=== PATIENT | female | born 1970 | race Caucasian/White ===

== ENCOUNTER 2019-01-02 06:08 | Emergency (ER) | payer BC, OTHER ==
[2019-01-02 06:19] VITALS: BP 103/63
--- NOTE | 2019-01-02 06:38 | EDM.PDOC ---
<Johnny Presley W - Last Filed: 01/02/19 08:19> ED HPI GENERAL MEDICAL PROBLEM - General Chief Complaint: Abdominal Pain Stated Complaint: STOMACH PAIN NAUSEA Time Seen by Provider: 01/02/19 06:20 - Related Data Allergies Allergy/AdvReac Type Severity Reaction Status Date / Time No Known Allergies Allergy Verified 01/02/19 06:20 Home Meds: Home Meds Citalopram Hydrobromide [Celexa] 20 mg PO DAILY 01/02/19 [History] Multivitamin [Multivitamins] 1 each PO DAILY 01/02/19 [History] Pramipexole Di-HCl [Mirapex] 0.125 mg PO ASDIRECTED 01/02/19 [History] Tamoxifen Citrate 20 mg PO DAILY 01/02/19 [History] Course - Vital Signs Last Recorded V/S: Last Vital Signs Temp 36.3 C 01/02/19 06:12 Pulse 78 01/02/19 06:12 Resp 18 01/02/19 06:12 BP 103/63 01/02/19 06:12 Pulse Ox 96 01/02/19 06:12 - Orders/Labs/Meds Labs: Laboratory Tests 01/02/19 01/02/19 01/02/19 Range/Units 06:20 06:29 06:29 WBC 11.1 H (4.0-10.0) x10^3/uL RBC 3.76 L (4.00-5.50) x10^6/uL Hgb 11.8 L (12.0-16.0) g/dL Hct 34.6 (33.0-47.0) % MCV 92.0 (78.0-93.0) fL MCH 31.4 (26.0-32.0) pg MCHC 34.1 (32.0-36.0) g/dL RDW Coeff of [place] 11.6 (10.0-15.0) % Plt Count 200 (130-400) x10^3/uL Neut % (Auto) 80.7 H (50.0-80.0) % Lymph % (Auto) 12.6 L (25.0-50.0) % [place] % (Auto) 6.1 (2.0-11.0) % Eos % (Auto) 0.3 (0.0-4.0) % Baso % (Auto) 0.3 (0.2-1.2) % Sodium 139 (136-145) mmol/L Potassium 3.9 (3.5-5.1) mmol/L Chloride 105 (98-107) mmol/L Carbon Dioxide 24 (21-32) mmol/L Anion Gap 13.9 (10-20) mmol/L BUN 12 (7-18) mg/dL Creatinine 0.9 (0.55-1.02) mg/dL Est Cr Clr Drug Dosing TNP Estimated GFR (MDRD) > 60 Glucose 119 H (74-106) mg/dL Calcium 8.2 L (8.5-10.1) mg/dL Corrected Calcium 8.68 (8.5-10.1) mg/dL Total Bilirubin 0.4 (0.2-1.0) mg/dL AST 18 (15-37) U/L ALT 27 (14-59) U/L Alkaline Phosphatase 75 (46-116) U/L C-Reactive Protein 3.4 H (<=0.9) mg/dL Total Protein 7.0 (6.4-8.2) g/dL Albumin 3.4 (3.4-5.0) g/dL Globulin 3.6 Albumin/Globulin Ratio 0.94 Amylase 49 (25-115) U/L Urine Color Yellow (YELLOW) Urine Appearance Clear (CLEAR) Urine pH 7.0 (5.0-8.0) Ur Specific [place] 1.015 Urine Protein Negative (NEGATIVE) mg/dL Urine Glucose (UA) Negative (NEGATIVE) mg/dL Urine Ketones Negative (NEGATIVE) mg/dL Urine Occult Blood Small H (NEGATIVE) Urine Nitrite Negative (NEGATIVE) Urine Bilirubin Small H (NEGATIVE) Urine Urobilinogen 1.0 (0.2) EU/dL Ur Leukocyte Esterase Negative (NEGATIVE) Urine RBC 0-5 (NOT SEEN) /HPF Urine WBC 0-5 (NOT SEEN) /HPF Ur Squamous Epith Cells Few H (NEGATIVE) /HPF Urine Bacteria Rare (NEGATIVE) /HPF Hyaline Casts Few H (NEGATIVE) /HPF Urine Mucus Few H (NEGATIVE) /LPF Meds: Medications Discontinued Medications Generic Name Dose Route Start Last Admin Trade Name Freq PRN Reason Stop Dose Admin Lactated Ringer's 1,000 mls @ 999 mls/hr 01/02/19 06:54 01/02/19 07:13 Ringers, Lactated IV 01/02/19 07:54 999 mls/hr ONETIME ONE Administration Piperacillin Sod/Tazobactam 100 mls @ 200 mls/hr 01/02/19 08:02 01/02/19 08: 13 Sod 3.375 gm/ Sodium Chloride IV 01/02/19 08:31 200 mls/hr STAT ONE Administration Iopamidol 100 ml 01/02/19 07:27 01/02/19 07:38 Isovue-300 (61%) IVPUSH 01/02/19 07:28 100 ml ONETIME ONE Administration Ketorolac Tromethamine 15 mg 01/02/19 06:54 01/02/19 07:10 Toradol IVPUSH 01/02/19 06:55 15 mg ONETIME ONE Administration Ondansetron HCl 4 mg 01/02/19 06:54 01/02/19 07:12 Zofran IVPUSH 01/02/19 06:55 4 mg ONETIME ONE Administration Sodium Chloride 10 ml 01/02/19 06:53 Saline Flush FLUSH ASDIRECTED PRN Keep Vein Open - Radiology Interpretation Free Text/Narrative:: CT abd/pelvis with IV contast obtained showing acute appendicitis. Departure - Departure Time of Disposition: 08:19 Disposition: DC/Tfer to Acute Hospital 02 Clinical Impression: Appendicitis - Discharge Information Referrals: Ramona Sanchez PA-C [Primary Care Provider] - Forms: ED Department Discharge, Interfacility Transfer EMTALA - Problem List Review Problem List Initiated/Reviewed/Updated: Yes - Assessment/Plan Plan: Pt. requests transport to [facility]. I contacted their ER and pt. was accepted by Dr. Reyes in ER. He states that the surgeon will be in the hospital later this AM but states that he can accept the patient, as it will likely take some time to get the patient in the system and prepped for surgery so there would be no benefit of transfer to [place]. Pt. was imformed of this and wishes to proceed. Pt. was started on Zosyn 3.375gm IV. He will be transported via [facility] ground ambulance. She is a code 1. Her last intake of food was last evening. She did have a small amount of water this AM. <Jeremias Crenshaw M - Last Filed: 01/03/19 18:13> ED HPI GENERAL MEDICAL PROBLEM - General Source of Information: Reports: Patient History Limitations: Reports: No Limitations - History of Present Illness INITIAL COMMENTS - FREE TEXT/NARRATIVE: Patient reports right lower quadrant pain and nausea since yesterday afternoon. She states it is a sharp cramping that radiates throughout the entire bowel. She does not have her gall bladder and has had a complete hysterectomy. She does still have her appendix. No history of inflammatory bowel disease, crohn's , ulcerative colitis or diverticulitis. She denies fever, chills, chest pain, shortness of breath, vomiting, headache, back ache. Primary provider is Ramona Sanchez. Onset Date: 01/01/19 Duration: Intermittent Location: Reports: Abdomen Quality: Reports: Sharp (sharp cramping) Severity: Moderate Improves with: Reports: None Worsens with: Reports: None Associated Symptoms: Reports: Nausea/Vomiting Right Lower Abdomen Pain Score (Numeric/FACES): 5 Past Medical History Respiratory History: Reports: Other (See Below) Other Respiratory History: CPAP for snoring Other Musculoskeletal History: RLS Psychiatric History: Reports: Anxiety, Depression Oncologic (Cancer) History: Reports: Breast - Past Surgical History Musculoskeletal Surgical History: Reports: Carpal Tunnel Social & Family History - Tobacco Use Smoking Status *Q: Never Smoker ED ROS GENERAL - Review of Systems Review Of Systems: See Below Constitutional: Reports: No Symptoms HEENT: Reports: No Symptoms Respiratory: Reports: No Symptoms Cardiovascular: Reports: No Symptoms Endocrine: Reports: No Symptoms GI/Abdominal: Reports: Abdominal Pain, Nausea : Reports: Pain Musculoskeletal: Reports: No Symptoms Skin: Reports: No Symptoms Neurological: Reports: No Symptoms Psychiatric: Reports: No Symptoms Hematologic/Lymphatic: Reports: No Symptoms Immunologic: Reports: No Symptoms ED EXAM, GI/ABD - Physical Exam Exam: See Below Exam Limited By: No Limitations General Appearance: Alert, WD/WN, No Apparent Distress Eyes: Bilateral: Normal Appearance, EOMI Head: Atraumatic, Normocephalic Neck: Normal Inspection, Supple, Non-Tender, Full Range of Motion Respiratory/Chest: No Respiratory Distress, Lungs Clear, Normal Breath Sounds, No Accessory Muscle Use, Chest Non-Tender Cardiovascular: Normal Peripheral Pulses, Regular Rate, Rhythm, No Edema, No Gallop, No JVD, No Murmur, No Rub GI/Abdominal Exam: Normal Bowel Sounds, No Organomegaly, No Distention, Tender Back Exam: Normal Inspection, Full Range of Motion, NT Extremities: Normal Inspection, Normal Range of Motion, Non-Tender, Normal Capillary Refill, No Pedal Edema Neurological: Alert, Oriented, CN II-XII Intact, Normal Cognition, Normal Gait, Normal Reflexes, No Motor/Sensory Deficits Psychiatric: Normal Affect, Normal Mood Skin Exam: Warm, Dry, Intact, Normal Color, No Rash Lymphatic: No Adenopathy Course - Orders/Labs/Meds Labs: Laboratory Tests 01/02/19 01/02/19 01/02/19 Range/Units 06:20 06:29 06:29 WBC 11.1 H (4.0-10.0) x10^3/uL RBC 3.76 L (4.00-5.50) x10^6/uL Hgb 11.8 L (12.0-16.0) g/dL Hct 34.6 (33.0-47.0) % MCV 92.0 (78.0-93.0) fL MCH 31.4 (26.0-32.0) pg MCHC 34.1 (32.0-36.0) g/dL RDW Coeff of [place] 11.6 (10.0-15.0) % Plt Count 200 (130-400) x10^3/uL Neut % (Auto) 80.7 H (50.0-80.0) % Lymph % (Auto) 12.6 L (25.0-50.0) % [place] % (Auto) 6.1 (2.0-11.0) % Eos % (Auto) 0.3 (0.0-4.0) % Baso % (Auto) 0.3 (0.2-1.2) % Sodium 139 (136-145) mmol/L Potassium 3.9 (3.5-5.1) mmol/L Chloride 105 (98-107) mmol/L Carbon Dioxide 24 (21-32) mmol/L Anion Gap 13.9 (10-20) mmol/L BUN 12 (7-18) mg/dL Creatinine 0.9 (0.55-1.02) mg/dL Est Cr Clr Drug Dosing TNP Estimated GFR (MDRD) > 60 Glucose 119 H (74-106) mg/dL Calcium 8.2 L (8.5-10.1) mg/dL Corrected Calcium 8.68 (8.5-10.1) mg/dL Total Bilirubin 0.4 (0.2-1.0) mg/dL AST 18 (15-37) U/L ALT 27 (14-59) U/L Alkaline Phosphatase 75 (46-116) U/L C-Reactive Protein 3.4 H (<=0.9) mg/dL Total Protein 7.0 (6.4-8.2) g/dL Albumin 3.4 (3.4-5.0) g/dL Globulin 3.6 Albumin/Globulin Ratio 0.94 Amylase 49 (25-115) U/L Urine Color Yellow (YELLOW) Urine Appearance Clear (CLEAR) Urine pH 7.0 (5.0-8.0) Ur Specific [place] 1.015 Urine Protein Negative (NEGATIVE) mg/dL Urine Glucose (UA) Negative (NEGATIVE) mg/dL Urine Ketones Negative (NEGATIVE) mg/dL Urine Occult Blood Small H (NEGATIVE) Urine Nitrite Negative (NEGATIVE) Urine Bilirubin Small H (NEGATIVE) Urine Urobilinogen 1.0 (0.2) EU/dL Ur Leukocyte Esterase Negative (NEGATIVE) Urine RBC 0-5 (NOT SEEN) /HPF Urine WBC 0-5 (NOT SEEN) /HPF Ur Squamous Epith Cells Few H (NEGATIVE) /HPF Urine Bacteria Rare (NEGATIVE) /HPF Hyaline Casts Few H (NEGATIVE) /HPF Urine Mucus Few H (NEGATIVE) /LPF Meds: Medications Discontinued Medications Generic Name Dose Route Start Last Admin Trade Name Freq PRN Reason Stop Dose Admin Lactated Ringer's 1,000 mls @ 999 mls/hr 01/02/19 06:54 01/02/19 07:13 Ringers, Lactated IV 01/02/19 07:54 999 mls/hr ONETIME ONE Administration Piperacillin Sod/Tazobactam 100 mls @ 200 mls/hr 01/02/19 08:02 01/02/19 08: 13 Sod 3.375 gm/ Sodium Chloride IV 01/02/19 08:31 200 mls/hr STAT ONE Administration Iopamidol 100 ml 01/02/19 07:27 01/02/19 07:38 Isovue-300 (61%) IVPUSH 01/02/19 07:28 100 ml ONETIME ONE Administration Ketorolac Tromethamine 15 mg 01/02/19 06:54 01/02/19 07:10 Toradol IVPUSH 01/02/19 06:55 15 mg ONETIME ONE Administration Ondansetron HCl 4 mg 01/02/19 06:54 01/02/19 07:12 Zofran IVPUSH 01/02/19 06:55 4 mg ONETIME ONE Administration Sodium Chloride 10 ml 01/02/19 06:53 Saline Flush FLUSH ASDIRECTED PRN Keep Vein Open
[2019-01-02] MEDS ORDERED: Sodium Chloride 0.9% 10 ML Syringe FLUSH PRN (06:53)
[2019-01-02] MEDS ORDERED: Ketorolac 15 MG/ML SDV IVPUSH ONE (06:54)
[2019-01-02] MEDS ORDERED: Ondansetron 4 MG/2 ML SDV IVPUSH ONE (06:54)
[2019-01-02] MEDS ORDERED: Lactated Ringers 1,000 ML IV ONE (06:54)
[2019-01-02 07:18] LABS: CHLORIDE,CL 105 mmol/L (98-107); SODIUM,NA 139 mmol/L (136-145)
[2019-01-02 07:19] LABS: ANION GAP 13.9 mmol/L (10-20)
[2019-01-02] MEDS ORDERED: Iopamidol 612 MG/ML 100 ML Bottle IVPUSH ONE (07:27)
[2019-01-02] MEDS ORDERED: Piperacillin/Tazobactam 3.375 GM in Sodium Chloride 0.9% 100 ML IV ONE (08:02)
--- NOTE | 2019-01-02 08:06 | CT ---
[id number] CT/CT Abdomen Pelvis W IV EXAM: CT Abdomen Pelvis W IV CLINICAL DATA: ABDOMINAL PAIN COMPARISON: CORRELATION IS MADE WITH THE EXAM OF MARCH 22, 2017. FINDINGS: There is appendicitis with distention of adjacent small bowel. There appear to be surgical changes in the pelvis. The uterus and ovaries are not seen. The liver and spleen, kidneys and adrenals, pancreas and aorta are unremarkable. The gallbladder has been removed. Report called. IMPRESSION: ACUTE APPENDICITIS. Jas Sibley MD 01/02/19 0805 Thank you for allowing us to participate in the care of your patient.
== END 2019-01-02 08:47 | disposition short-term general hospital (02) ==
LOC: VM.ED 06:08
DX: K37 Unspecified appendicitis (principal); F32.9 Major depressive disorder, single episode, unspecified; F41.9 Anxiety disorder, unspecified; Z79.899 Other long term (current) drug therapy
CPT/HCPCS: 36415; 74177; 80053; 81001; 82150; 85025; 86140; 96361; 96365; 96375; 99285; J1885; J2405; J2543; J7050; J7120; Q9967

== ENCOUNTER 2020-02-08 09:01 | Day surgery (SDC) | payer BC ==
[~2020-02-08 09:01] MED LIST: Lactated Ringers 1,000 ML IV SCH
[2020-02-08] MEDS ORDERED: Propofol 200 MG/20 ML SDV ONE ×2 (10:06→10:33)
[2020-02-08] MEDS ORDERED: fentaNYL 100 MCG/2 ML SDV ONE (10:06)
[2020-02-08 11:26] VITALS: BP 100/56; PULSE 62
--- NOTE | 2020-02-08 15:21 | OR ---
DATE OF SURGERY: 02/08/2020 REFERRING PROVIDER: Ramona Sanchez PA-C PRE-OPERATIVE DIAGNOSES: History of colon polyps. The patient had large adenoma removed in 2011 and then repeat colonoscopy in 2014 was normal. There was no family history of colon cancer or significant colon polyps that she is aware of. POST-OPERATIVE DIAGNOSES: 1. 3 mm polyp at 15 cm, removed with cold forceps. 2. Normal-appearing distal ileum. 3. Mild sigmoid diverticulosis. PROCEDURE: Colonoscopy with polypectomy x1 using cold forceps. SURGEON: Mushtaq Rivas M.D. ANESTHESIA: Monitored anesthesia care. BOWEL PREP: Good. Leah is a 49-year-old female who was brought to the endoscopy suite after discussing risks and benefits of the procedure. Informed consent was obtained for conscious sedation and colonoscopy with or without biopsy and/or polypectomy. We also discussed possibility of missed lesions. Pre-procedure exam was unremarkable. IV, oxygen, and monitors were placed. The patient was placed in the left lateral decubitus position. Sedation was administered and a digital rectal exam was performed and unremarkable. Colonoscope was passed into the rectum and slowly advanced all the way to the cecum. Cecum was viewed and photographed. Ileocecal valve was intubated and distal ileum was normal in appearance. The colonoscope was slowly withdrawn and the mucosa was closed observed in a direct circumferential manner. The ascending colon was unremarkable. The transverse colon was unremarkable. The descending colon was unremarkable. The sigmoid colon revealed some mild diverticulosis. There was also a 3 mm polyp at about 15 cm, removed with cold forceps. Retroflexion was performed and rectal mucosa was unremarkable. Scope was removed. The patient tolerated the procedure well. The patient was monitored until that baseline status. Discharge instructions were reviewed and the patient was discharged in good condition. COMPLICATIONS: None. TOTAL TIME: 16 minutes. ESTIMATED BLOOD LOSS: Less than 1 mL. RECOMMENDATIONS/FOLLOW-UP: We will await results of path report to determine ideal followup interval. I would like to kindly thank Ramona Sanchez for this referral. DMB: 02/08/2020 10:56:19 MODL: 02/08/2020 14:18:06 /[id number]
== END 2020-02-08 12:15 | disposition home or self-care (01) ==
LOC: VM.SDS 09:01
PROVIDERS: ATTEND Family Medicine
DX: Z12.11 Encounter for screening for malignant neoplasm of colon (principal); K63.5 Polyp of colon; K57.30 Diverticulosis of large intestine without perforation or abscess without bleeding; G47.33 Obstructive sleep apnea (adult) (pediatric); F41.1 Generalized anxiety disorder; G25.81 Restless legs syndrome; F43.20 Adjustment disorder, unspecified; Z85.3 Personal history of malignant neoplasm of breast; Z11.59 Encounter for screening for other viral diseases; Z86.010 Personal history of colon polyps; Z79.899 Other long term (current) drug therapy; Z99.89 Dependence on other enabling machines and devices; Z87.891 Personal history of nicotine dependence
CPT/HCPCS: 00811; J2704; J3010; J7120; U0002

== ENCOUNTER 2020-12-12 07:25 | Day surgery (SDC) | payer BC ==
[2020-12-12] MEDS ORDERED: Citric Acid/Sodium Citrate Solution 30 ML Cup PO ONE (08:02)
[2020-12-12] MEDS ORDERED: Propofol 200 MG/20 ML SDV ONE (08:07)
[2020-12-12] MEDS ORDERED: fentaNYL 100 MCG/2 ML SDV ONE (08:07)
[2020-12-12 09:55] VITALS: BP 108/67; PULSE 60
--- NOTE | 2020-12-12 11:41 | OR ---
SURGERY DATE: 12/12/2020. REFERRING PROVIDER: Ramona Sanchez PA-C PRE-OPERATIVE DIAGNOSES: 1. Resistant reflux with some regurgitation at times. This has been ongoing for the past 3 months. The patient has been taking omeprazole 20 mg daily and this has helped some. 2. Nausea, patient wakes up at night with this. She denies any tobacco or alcohol intake and only rare ibuprofen use. POST-OPERATIVE DIAGNOSES: 1. Very minimal gastritis. Antral biopsy taken x2 bites using cold forceps. 2. 2 cm sliding-type hiatal hernia. PROCEDURE: Esophagogastroduodenoscopy with cold biopsy x1 site (antrum). SURGEON: Mushtaq Rivas M.D. ANESTHESIA: Monitored anesthesia care. Leah is a 50-year-old female who was brought to the endoscope suite after discussion of risks and benefits (including but not limited to reaction to medication, bleeding, infection, aspiration, perforation). Informed consent was obtained for monitored anesthesia care and esophagogastroduodenoscopy along with possible biopsy and/or dilatation. Pre-procedure exam including oral cavity was unremarkable. IV, oxygen, and monitors were placed. Patient was placed in the left lateral position and sedation was administered. A bite block was placed gently and scope lightly lubricated and passed through the bite block and over the tongue. Hypopharynx and vocal cords were visualized and unremarkable. Scope was passed through the cricopharynx and into the esophagus. The scope was then passed through the distal esophagus and the GE junction was visualized and photographed. The GE junction was remarkable for a small 2 cm sliding-type hiatal hernia without any significant inflammation. Vocal cords were visualized and unremarkable. The scope was advanced into the stomach and gastric palacios was suctioned. Pylorus was identified and intubated and then the scope was advanced to the third portion of the duodenum. The second and third portions of the duodenum were unremarkable. The duodenal bulb was visualized and unremarkable. The scope was brought back into the stomach. The pylorus and the antrum were remarkable for some very minimal gastritis. Biopsies for H pylori and path were obtained from the antrum. Cold biopsy x2 bites was taken from this area to check for H. pylori and sent for path. The scope was retroflexed to visualize the angularis, fundus, body, and cardia. These were remarkable again for some very minimal gastritis. The stomach was desufflated of air and then the scope was slowly withdrawn, and the esophagus was closely visualized during withdrawal all the way into the posterior pharynx and this was unremarkable. The patient tolerated the procedure well and went to recovery in stable condition. The patient was monitored until at baseline status. Findings and discharge instructions were reviewed and the patient was discharged in good condition. COMPLICATIONS: None. TOTAL TIME: 7 minutes. ESTIMATED BLOOD LOSS: Less than 1 mL. RECOMMENDATIONS/FOLLOW-UP: Given the patient's ongoing symptoms, I will have her try increasing omeprazole to 40 mg daily (or 20 mg twice a day). Prescription was done. She could also continue with lifestyle modifications. We will send letter with path results. I would like to kindly thank Ramona Sanchez for this referral. DMB: 12/12/2020 10:13:34 MODL: 12/12/2020 10:38:12 /[id number]
== END 2020-12-12 10:20 | disposition home or self-care (01) ==
LOC: VM.SDS 07:25
PROVIDERS: ATTEND Family Medicine
DX: K29.70 Gastritis, unspecified, without bleeding (principal); K21.9 Gastro-esophageal reflux disease without esophagitis; K44.9 Diaphragmatic hernia without obstruction or gangrene; G47.33 Obstructive sleep apnea (adult) (pediatric); E78.00 Pure hypercholesterolemia, unspecified; E78.5 Hyperlipidemia, unspecified; Z98.890 Other specified postprocedural states; Z79.899 Other long term (current) drug therapy; Z20.822 Contact with and (suspected) exposure to COVID-19; Z90.49 Acquired absence of other specified parts of digestive tract; Z87.891 Personal history of nicotine dependence
CPT/HCPCS: 00731; 43239; 87635; A9270; J2704; J3010; J7120; U0002

== ENCOUNTER 2025-02-01 13:00 | Day surgery (SDC) | payer BC ==
[~2025-02-01 13:00] MED LIST changes: -Lactated Ringers 1,000 ML IV SCH; +Midazolam 1 MG/ML 2 ML SDV ONE; +Propofol 200 MG/20 ML SDV ONE; +fentaNYL 100 MCG/2 ML SDV ONE
[2025-02-01] MEDS: Lactated Ringers 1,000 ML IV SCH (13:29)
[2025-02-01] MEDS ORDERED: Propofol 200 MG/20 ML SDV ONE (13:38)
[2025-02-01] MEDS ORDERED: ePHEDrine 50 MG/ML SDV ONE (14:11)
[2025-02-01 15:04] VITALS: BP 87/51; PULSE 68
== END 2025-02-01 15:44 | disposition home or self-care (01) ==
LOC: VM.SDS 13:00
PROVIDERS: ATTEND Family Medicine
DX: Z12.11 Encounter for screening for malignant neoplasm of colon (principal); D12.3 Benign neoplasm of transverse colon; K21.00 Gastro-esophageal reflux disease with esophagitis, without bleeding; K57.30 Diverticulosis of large intestine without perforation or abscess without bleeding; K44.9 Diaphragmatic hernia without obstruction or gangrene; E66.9 Obesity, unspecified; Z68.33 Body mass index [BMI] 33.0-33.9, adult; Z87.891 Personal history of nicotine dependence; Z79.899 Other long term (current) drug therapy; Z86.0101 Personal history of adenomatous and serrated colon polyps
CPT/HCPCS: 00813; J2250; J2704; J3010; J3490; J7120

== ENCOUNTER 2025-04-27 21:09 | Emergency (ER) | payer BC ==
[2025-04-27] MEDS ORDERED: Sodium Chloride 0.9% 10 ML Syringe FLUSH PRN (21:42)
[2025-04-27] MEDS: Ondansetron 4 MG/2 ML SDV IVPUSH ONE (21:46)
[2025-04-27] MEDS: Ketorolac 30 MG/ML SDV IVPUSH ONE (21:46)
[2025-04-27] MEDS: Lactated Ringers 1,000 ML IV ONE (21:46)
[2025-04-27 21:51] LABS: BASOPHILS ABSOLUTE AUTO 0.0 x10^3/uL (0.0-0.2); BASOPHILS PERCENT AUTO 0.3 % (0.2-1.2); EOSINOPHILS ABSOLUTE AUTO 0.1 x10^3/uL (0.0-0.5); EOSINOPHILS PERCENT AUTO 1.2 % (0.0-4.0); IMMATURE GRAN ABSOLUTE AUTO 0.02 x10^3/uL (0.00-0.07); IMMATURE GRAN PERCENT AUTO 0.30 % (0.00-0.43); LYMPHOCYTES ABSOLUTE AUTO 2.1 x10^3/uL (1.0-4.8); LYMPHOCYTES PERCENT AUTO 30.5 % (25.0-50.0); MONOCYTES ABSOLUTE AUTO 0.6 x10^3/uL (0.0-0.8); MONOCYTES PERCENT AUTO 9.4 % (2.0-11.0); NEUTROPHILS ABSOLUTE AUTO 4.0 x10^3/uL (1.8-7.7); NEUTROPHILS PERCENT AUTO 58.3 % (50.0-80.0); PLATELET COUNT,PLT 237 x10^3/uL (130-400); RED BLOOD CELL COUNT 3.69 x10^6/uL (4.00-5.50); WHITE BLOOD CELL COUNT,WBC 6.8 x10^3/uL (4.0-10.0)
[2025-04-27 21:53] LABS: APPEARANCE,URINE CLEAR (CLEAR); GLUCOSE,URINE NEGATIVE (NEGATIVE); OCCULT BLOOD,URINE SMALL (NEGATIVE)
[2025-04-27 21:59] LABS: SQUAMOUS EPITHELIAL CELLS,UR RARE /HPF (NOT SEEN)
[2025-04-27 22:07] LABS: A/G RATIO 1.19; ALANINE AMINOTRANSFERASE,ALT 27 U/L (14-59); ASPARTATE AMNIOTRANSFERASE,AST 18 U/L (15-37); BILIRUBIN TOTAL 0.4 mg/dL (0.2-1.0); BLOOD UREA NITROGEN,BUN 18 mg/dL (7-18); CARBON DIOXIDE,CO2 24 mmol/L (21-32); CHLORIDE,CL 105 mmol/L (98-107); CREATININE 1.0 mg/dL (0.55-1.02); GLUCOSE RANDOM 88 mg/dL (70-99); POTASSIUM,K 3.4 mmol/L (3.5-5.1); PROTEIN TOTAL,TP 6.8 g/dL (6.4-8.2); SODIUM,NA 138 mmol/L (136-145)
[2025-04-27 22:09] LABS: ESTIMATED GFR 66 mL/min (>=60)
[2025-04-27] MEDS: Iopamidol 612 MG/ML 100 ML Bottle IVPUSH ONE (23:04)
[2025-04-27] MEDS: Take Home: Ondansetron 4 MG Tab.DIS, 5 Tab Pack PO ONE (23:52)
[2025-04-28 00:27] VITALS: BP 113/59; PULSE 68
== END 2025-04-27 23:58 | disposition home or self-care (01) ==
LOC: VM.ED 21:09
DX: R19.7 Diarrhea, unspecified (principal); R10.31 Right lower quadrant pain; R10.32 Left lower quadrant pain; E66.9 Obesity, unspecified; M19.90 Unspecified osteoarthritis, unspecified site; Z79.899 Other long term (current) drug therapy; Z90.710 Acquired absence of both cervix and uterus; Z90.49 Acquired absence of other specified parts of digestive tract; Z68.34 Body mass index [BMI] 34.0-34.9, adult
CPT/HCPCS: 80053; 81001; 82150; 83690; 83735; 85025; 96361; 96374; 96375; 99284; J1885; J2405; J7120; Q0162; Q9967; 36415; 74177